=== PATIENT | male | born 1950 | race Caucasian/White ===

== ENCOUNTER 2021-07-01 06:06 | Observation (INO) ==
[2021-07-01] MEDS ORDERED: *HR* Propofol 200 MG/20 ML VIAL IVP ONE ×2 (06:54→08:41)
[2021-07-01] MEDS ORDERED: *HR* FentaNYL (PF) 100 MCG/2 ML VIAL ONE ×2 (06:54→10:32)
[2021-07-01] MEDS ORDERED: Lidocaine -MPF 2% 5 ML VIAL ONE (06:54)
[2021-07-01] MEDS ORDERED: *HR* Succinylcholine 200 MG/10 ML VIAL IVP ONE (06:54)
[2021-07-01] MEDS ORDERED: *HR* Rocuronium Bromide 50 MG/5 ML VIAL ONE (06:54)
[2021-07-01] MEDS ORDERED: Ondansetron 4 MG/2 ML VIAL ONE (06:54)
[2021-07-01] MEDS ORDERED: *HR* Midazolam HCl 2 MG/2 ML VIAL ONE (06:54)
[2021-07-01] MEDS ORDERED: *HR* Remifentanil 2 MG VIAL IVP ONE ×3 (06:56→12:01)
[2021-07-01] MEDS ORDERED: Famotidine 20 MG TABLET PO ONE (07:00)
[2021-07-01] MEDS ORDERED: *HR* Remifentanil 1 MG VIAL IVP ONE ×3 (07:09→13:44)
[2021-07-01] MEDS ORDERED: CeFAZolin Syr 2,000MG/20 ML 2,000 MG/20 ML SYRINGE IVPB ONE (07:17)
[2021-07-01] MEDS ORDERED: *HR* OxyCODONE Immed Rel 5 MG TABLET PO ONE (07:17)
[2021-07-01] MEDS ORDERED: Ondansetron 4 MG/2 ML VIAL IVP PRN ×2 (07:18→16:10)
[2021-07-01] MEDS ORDERED: *HR* FentaNYL (PF) 100 MCG/2 ML VIAL IVP PRN (07:18)
[2021-07-01] MEDS ORDERED: *HR* HYDROmorphone PF 0.5 MG/0.5 ML SYRINGE IVP PRN (07:18)
[2021-07-01] MEDS ORDERED: Ipratropium/Albuterol Neb 3 ML IH ONE (07:26)
[2021-07-01] MEDS ORDERED: Ringers Solution, Lactated 1,000 ML IVC SCH ×2 (07:30→16:10)
[2021-07-01] MEDS ORDERED: Bupivacaine/EPI 1:200k 0.25% 50 ML VIAL ONE (07:31)
[2021-07-01] MEDS ORDERED: Polymyxin B Sulfate 500,000 UNIT, Sodium Chloride IRRigation 1,000 ML IR ONE (07:45)
[2021-07-01] MEDS ORDERED: dexmedeTOMIDine in 0.9 % NaCL 80 MCG/20 ML MLS ONE (12:33)
[2021-07-01] MEDS ORDERED: *HR* HYDROMORPHONE 2 MG/ML VIAL ONE (12:35)
[2021-07-01] MEDS ORDERED: *HR* Labetalol 20 MG/4 ML SYRINGE IVP ONE (14:52)
[2021-07-01] MEDS ORDERED: *HR* HYDROcodone/Acet 5/325 mg TABLET PO PRN (16:10)
[2021-07-01] MEDS ORDERED: Ipratropium/Albuterol Neb 3 ML IH PRN (16:10)
[2021-07-01] MEDS ORDERED: Sennosides 8.6 MG TABLET PO PRN (16:10)
[2021-07-01] MEDS ORDERED: Naloxone 0.4 MG/ML INJ IVP PRN (16:10)
[2021-07-01] MEDS ORDERED: BUPRENORPHINE TP SCH (16:10)
[2021-07-01] MEDS ORDERED: Acetaminophen 325 MG TABLET PO PRN (16:10)
[2021-07-01] MEDS: Gabapentin 300 MG CAPSULE PO SCH (17:23)
[2021-07-01] MEDS: CeFAZolin 2 GM/120 ML BAG IVPB SCH (17:58)
[2021-07-01] MEDS: *HR* OxyCODONE Immed Rel 5 MG TABLET PO PRN (21:49)
[2021-07-01] MEDS: Budesonide/Formoterol 160/4.5 1 PUFF INH IH SCH (21:50)
[2021-07-02] MEDS: CeFAZolin 2 GM/120 ML BAG IVPB SCH (00:44)
[2021-07-02] MEDS: Gabapentin 300 MG CAPSULE PO SCH ×4 (00:44→20:05)
[2021-07-02] MEDS: *HR* OxyCODONE Immed Rel 5 MG TABLET PO PRN ×3 (05:22→21:06)
[2021-07-02] MEDS: lisinopriL 20 MG TABLET PO SCH (07:37)
[2021-07-02] MEDS: Cholecalciferol (D-3) 1,000 UNIT (25MCG) TABLET PO SCH (07:37)
[2021-07-02] MEDS: Tiotropium 10 INH DOSE IH SCH (11:12)
[2021-07-02] MEDS: Budesonide/Formoterol 160/4.5 1 PUFF INH IH SCH ×2 (11:12→20:39)
[2021-07-03 03:11] VITALS: O2SAT 95
[2021-07-03] MEDS: *HR* OxyCODONE Immed Rel 5 MG TABLET PO PRN (07:36)
[2021-07-03] MEDS: lisinopriL 20 MG TABLET PO SCH (07:37)
[2021-07-03] MEDS: Gabapentin 300 MG CAPSULE PO SCH (07:37)
[2021-07-03] MEDS: Cholecalciferol (D-3) 1,000 UNIT (25MCG) TABLET PO SCH (07:37)
[2021-07-03] MEDS: Tiotropium 10 INH DOSE IH SCH (07:54)
[2021-07-03] MEDS: Budesonide/Formoterol 160/4.5 1 PUFF INH IH SCH (07:55)
[2021-07-03 08:34] VITALS: BP 146/81; PULSE 100; TEMP 98
== END 2021-07-03 11:00 | disposition home or self-care (01) ==
LOC: SDCAOSI 06:06 → 4WAOSI 06:06
PROVIDERS: ADMIT Student in an Organized Health Care Education/Training Program; ATTEND Student in an Organized Health Care Education/Training Program